=== PATIENT | male | born 1930 | race Caucasian/White ===

== ENCOUNTER → 2017-08-09 | Outpatient (REF) | LOC: LAB 07:17 | DX: I48.91 Unspecified atrial fibrillation (principal) ==

== ENCOUNTER 2019-02-27 14:15 | Emergency (ER) | payer MEDICARE ==
[~2019-02-27] VITALS: Wt 75.9 kg
[2019-02-27 15:16] LABS: EOS # 0.1 (0.04-0.40); HEMATOCRIT 34.8 % (42.0-52.0); HEMOGLOBIN 11.2 g/dL (13.5-18.0); LYMPH# 0.8 (1.50-4.00); MEAN CELL VOLUME 98 fl (78-100); MEAN CORPUSCULAR HEMOGLOBIN 32 pg (27-31); MEAN CORPUSCULAR HGB CONC 32 g/dL (33-37); MEAN PLATELET VOLUME 10.6 fl (7.4-10.4); MONO # 0.7 (0.20-0.80); NEU # 4.7 (1.40-6.50); PLATELET COUNT 134 K/mm3 (130-400); RED BLOOD COUNT 3.56 M/mm3 (4.20-5.60); RED CELL DISTRIBUTION WIDTH 13.8 % (11.5-14.5); WHITE BLOOD COUNT 6.3 K/mm3 (4.8-10.8)
[2019-02-27 15:19] LABS: PROTHROMBIN TIME 18.5 SECONDS (9.0-12.0)
[2019-02-27 15:21] LABS: ALBUMIN 3.8 g/dL (3.5-5.0); CALCIUM 8.6 mg/dL (8.4-10.2); POTASSIUM 4.5 mmol/L (3.6-5.0); TOTAL BILIRUBIN 0.9 mg/dL (0.2-1.3); TOTAL PROTEIN 6.8 g/dL (6.3-8.2)
[2019-02-27] MEDS ORDERED: TYLENOL 325MG325 MG PO (17:26)
[2019-02-27] MEDS ORDERED: ASPIRIN E.C. 8181 MG PO (17:26)
[2019-02-27] MEDS ORDERED: CARBIDOPA/LEVODOPA PO (17:27)
[2019-02-27] MEDS ORDERED: DIGOX0.125 MG PO (17:28)
[2019-02-27] MEDS ORDERED: WARFARIN SODIU2.5 MG PO (17:28)
[2019-02-27] MEDS ORDERED: FLEET ENEM1 BOT/133 RC (17:29)
[2019-02-27] MEDS ORDERED: FISH OIL 1000MG1 CAP PO (17:29)
[2019-02-27] MEDS ORDERED: DULCOLAX S10 MG/SUPP RC (17:29)
[2019-02-27] MEDS ORDERED: FUROSEMIDE40 MG PO (17:31)
[2019-02-27] MEDS ORDERED: LOPID600 MG PO (17:32)
[2019-02-27] MEDS ORDERED: GOOD NEIGH1200 MG/15 PO (17:33)
[2019-02-27] MEDS ORDERED: LISINOPRIL20 MG PO (17:33)
[2019-02-27] MEDS ORDERED: LIBRAX CAPSULE1 EACH PO (17:33)
[2019-02-27] MEDS ORDERED: PRAVASTATIN SOD10 MG PO (17:34)
[2019-02-27] MEDS ORDERED: NITROGLYCERIN0.4 M1 SL (17:34)
[2019-02-27] MEDS ORDERED: LANSOPRAZOLE30 MG PO (17:35)
[2019-02-27] MEDS ORDERED: SUCRALFATE1 G1 PO (17:35)
[2019-02-27] MEDS ORDERED: METOPROLOL SUCC50 M1 PO (17:36)
[2019-02-27 18:29] VITALS: BP 128/69
[2019-02-27 19:36] LABS: URINE APPEARANCE CLOUDY; URINE COLOR YELLOW; URINE PROTEIN(semi-quant) 1+ mg/dL (NEGATIVE)
[2019-02-27 19:37] LABS: URINE BILIRUBIN NEGATIVE (NEGATIVE); URINE BLOOD 250 ery/uL (NEGATIVE); URINE KETONE NEGATIVE (NEGATIVE); URINE LEUKOCYTE ESTERASE TRACE (NEGATIVE); URINE NITRATE NEGATIVE (NEGATIVE); URINE UROBILINOGEN NORMAL (NORMAL)
== END 2019-02-27 18:46 | disposition other institution (70) ==
LOC: ED 14:15
PROVIDERS: Physician Assistant
DX: R41.82 Altered mental status, unspecified (principal); I48.91 Unspecified atrial fibrillation; I50.9 Heart failure, unspecified; R53.1 Weakness; G20 Parkinson's disease; K21.9 Gastro-esophageal reflux disease without esophagitis; I25.2 Old myocardial infarction; E78.5 Hyperlipidemia, unspecified; Z88.0 Allergy status to penicillin; Z79.01 Long term (current) use of anticoagulants; Z79.82 Long term (current) use of aspirin
CPT/HCPCS: J7030

== ENCOUNTER 2019-02-27 18:03 | Inpatient (IN) | payer MEDICARE ==
[~2019-02-27] VITALS: Ht 177.8 cm; Wt 74.9 kg
[~2019-02-27 18:03] MED LIST: ASPIRIN E.C. 8181 MG PO; CARBIDOPA/LEVODOPA PO; DIGOX0.125 MG PO; DULCOLAX S10 MG/SUPP RC; FISH OIL 1000MG1 CAP PO; FLEET ENEM1 BOT/133 RC; FUROSEMIDE40 MG PO; GOOD NEIGH1200 MG/15 PO; LANSOPRAZOLE30 MG PO; LIBRAX CAPSULE1 EACH PO; LISINOPRIL20 MG PO; LOPID600 MG PO; METOPROLOL SUCC50 M1 PO; NITROGLYCERIN0.4 M1 SL; PRAVASTATIN SOD10 MG PO; SUCRALFATE1 G1 PO; TYLENOL 325MG325 MG PO; WARFARIN SODIU2.5 MG PO
--- NOTE | 2019-02-27 18:45 | NUR ---
DELIVER PATIENT TO ROOM 203 VIA STRETCHER. TRANSFER TO BED X2 STAFF. PATIENT ALERT AND TALKING WITH STAFF. INT INTACT TO RT HAND. INCONTINENT OF URINE; SCARLET CARE AND NEW ATTEND.
[2019-02-27 19:00] VITALS: BP 128/69
--- NOTE | 2019-02-27 19:30 | NUR ---
REPORT PROVIDED TO LISA FARAH.
[2019-02-27 23:00] VITALS: BP 152/67
[2019-02-28 02:15] VITALS: BP 128/72
[2019-02-28 06:17] VITALS: BP 128/77
[2019-02-28 07:11] LABS: EOS # 0.1 (0.04-0.40); EOS % 1.3 % (0.0-4.0); HEMATOCRIT 32.9 % (42.0-52.0); HEMOGLOBIN 10.7 g/dL (13.5-18.0); MEAN CELL VOLUME 97 fl (78-100); MEAN CORPUSCULAR HEMOGLOBIN 32 pg (27-31); MEAN CORPUSCULAR HGB CONC 33 g/dL (33-37); MEAN PLATELET VOLUME 10.6 fl (7.4-10.4); MONO # 0.4 (0.20-0.80); NEU # 3.3 (1.40-6.50); PLATELET COUNT 109 K/mm3 (130-400); RED CELL DISTRIBUTION WIDTH 13.3 % (11.5-14.5); WHITE BLOOD COUNT 4.5 K/mm3 (4.8-10.8)
[2019-02-28 07:36] LABS: PROTHROMBIN TIME 20.8 SECONDS (9.0-12.0)
[2019-02-28 07:47] LABS: LYMPH# 0.7 (1.50-4.00)
--- NOTE | 2019-02-28 08:00 | NUR ---
Notified provider of critical ProBNP 2525.4. Stopped fluids per MIRIAM Ley, RUBEN. Pt is A&O. Is upset that he has not eaten. Explain that ST will be in to monitor swallow during breakfast. Pt is 2 max assist to get out of bed. Stands with walker and "shuffles" approx 3' to recliner. INT intact to R hand. Reports pain in low back from "laying down all night" and has chronic neck pain that has been worsened last night "from them jerking me around getting me over here." Pt sits in recliner, alarm on, call light within reach.
[2019-02-28 08:31] LABS: CALCIUM 8.5 mg/dL (8.4-10.2); POTASSIUM 3.9 mmol/L (3.6-5.0)
[2019-02-28 11:42] VITALS: BP 125/62
[2019-02-28 15:00] VITALS: BP 101/57
[2019-02-28 18:00] VITALS: BP 144/77
--- NOTE | 2019-02-28 19:27 | NUR ---
Resting in bed. Echo completed and resulted on chart. A/O mostly, Did not know place ([facility] but [facility]) and did not know year. States "I don't know that. Rates pain to neck 03/29. K-pad in place. Assessment completed. [employer] in to reposition and change brief. Bed alarm on. Call light in reach.
--- NOTE | 2019-02-28 20:10 | NUR ---
INT to R hand leaking. D/C'd. New INT #20 started in LFA x1 attempt. Tolerated well. IV Rocephin administered SIVP. Accu-check 213. 4 Units of Novolog admin. SQ in KIM. Daughter in to visit and reports patient having increased neck pain. Tylenol 650 MG administered with HS medications. Taken whole in applesauce.
[2019-02-28 22:53] VITALS: BP 145/62
--- NOTE | 2019-03-01 01:06 | NUR ---
Awake with some confusion. Able to state name, , and correct Month. States I don't know how I got upstairs. Reoriented to place a situation. States "I know" when told he is at the hospital for a UTI. Incontinent of urine. Brief changed. Bed alarm on. Call light in reach.
--- NOTE | 2019-03-01 01:30 | NUR ---
Tylenol given for neck pain.
[2019-03-01 03:13] VITALS: BP 177/75
--- NOTE | 2019-03-01 03:13 | NUR ---
Remains awake, no sleep at all this shift. Drowsy, partially oriented, partially confused. Continues to have pain in his neck. Took pillow out and then states to staff "I need support for my head". Incontinent of urine, Stiff with turns and guarding of neck.
--- NOTE | 2019-03-01 03:57 | NUR ---
Resting now with eyes closed. No signs of distress. Bed alarm on. Call light in reach.
--- NOTE | 2019-03-01 06:13 | NUR ---
Awake in room. More alert and less confused then in the middle of the night. Helps with turns and less stiff. Incontinent of urine. Jessica-cares provided.
[2019-03-01 06:17] VITALS: BP 170/77
--- NOTE | 2019-03-01 07:32 | NUR ---
Report to Salma FARAH.
[2019-03-01] MEDS ORDERED: LISINOPRIL10 MG PO (10:24)
[2019-03-01] MEDS ORDERED: GLUCOPHAGE PO (10:25)
[2019-03-01] MEDS ORDERED: MACROBID 100 M100 MG PO (10:36)
[2019-03-01 10:42] VITALS: BP 170/77
--- NOTE | 2019-03-01 10:53 | NUR ---
REPORT RECEIVED THIS AM FROM SARA Fallon RN. PATIENT ALERT AND CONFUSED THIS MORNING WHEN DOING ASSESSMENT AND GIVING MEDS. ST DIXIE IN ROOM WITH PATIENT DURING THIS TIME WELL. PATIENT WAS RE-ORIENTED SOME WHEN TALKED ABOUT FAMILY AND PAST BUT UNSURE OF YEAR OR PRESIDENT. PATIENT STATES HE REMEMBERS THAT HE LIVES AT [facility]. PATIENT IS COOPERATIVE AND SWALLOWS PILLS EASILY WITH APPLESAUCE. PATIENT WAS GIVEN A SHOWER THIS MORNING AND THEN DISCHARGED HOME TO [facility].
--- NOTE | 2019-03-01 11:03 | NUR ---
REPORT CALLED TO YUMIKO AT [facility]. STAFF CAME OVER TO TAKE HIM HOME IN WHEELCHAIR, FAMILY AT BEDSIDE AND WENT TO OK WITH PATIENT AND STAFF. ALL BELONGINGS SENT WITH PATIENT AND FAMILY. NO QUESTIONS OR CONCERNS NOTED. PATIENT LEFT WITHOUT INCIDENT.
== END 2019-03-01 11:08 | DRG 638 ==
LOC: MED/SURG 18:03
PROVIDERS: ADMIT Physician Assistant
DX: E11.65 Type 2 diabetes mellitus with hyperglycemia (principal); G45.9 Transient cerebral ischemic attack, unspecified; N39.0 Urinary tract infection, site not specified; I48.91 Unspecified atrial fibrillation; G20 Parkinson's disease; K21.9 Gastro-esophageal reflux disease without esophagitis; I50.9 Heart failure, unspecified; R53.81 Other malaise; I11.0 Hypertensive heart disease with heart failure; Z79.01 Long term (current) use of anticoagulants
CPT/HCPCS: A4216; C9113; J0696; J1650; J1815; J7030

== ENCOUNTER → 2019-03-07 | Outpatient (CLI) | payer MEDICARE ==
[2019-03-01 10:42] VITALS: BP 170/77
[~2019-03-07] MED LIST changes: +GLUCOPHAGE PO; +LISINOPRIL10 MG PO; +MACROBID 100 M100 MG PO
[2019-03-07 10:57] LABS: URINE APPEARANCE HAZY; URINE BILIRUBIN NEGATIVE (NEGATIVE); URINE BLOOD TRACE (NEGATIVE); URINE COLOR YELLOW; URINE GLUCOSE NEGATIVE (NEGATIVE); URINE KETONE 1+ (NEGATIVE); URINE NITRATE NEGATIVE (NEGATIVE); URINE PROTEIN(semi-quant) TRACE mg/dL (NEGATIVE); URINE UROBILINOGEN NORMAL (NORMAL)
[2019-03-07 10:58] LABS: URINE LEUKOCYTE ESTERASE TRACE (NEGATIVE); URINE WBC 0-1 /hpf (0-3)
[2019-03-07 10:59] LABS: URINE MUCUS PRESENT (NOT PRESENT)
== END ==
LOC: LAB 09:41
PROVIDERS: Family Medicine
DX: N39.0 Urinary tract infection, site not specified (principal)

== ENCOUNTER → 2019-04-25 | Outpatient (CLI) | payer MEDICARE ==
[2019-04-25 06:57] LABS: PROTHROMBIN TIME 16.4 SECONDS (9.0-12.0)
== END ==
LOC: LAB 05:50
PROVIDERS: Internal Medicine Cardiovascular Disease
DX: I48.91 Unspecified atrial fibrillation (principal); Z79.01 Long term (current) use of anticoagulants

== ENCOUNTER → 2019-05-02 | Outpatient (CLI) | payer MEDICARE ==
[2019-05-02 06:28] LABS: PROTHROMBIN TIME 13.8 SECONDS (9.0-12.0)
== END ==
LOC: LAB 05:20
PROVIDERS: Internal Medicine Cardiovascular Disease
DX: I48.91 Unspecified atrial fibrillation (principal); Z79.01 Long term (current) use of anticoagulants

== ENCOUNTER → 2019-05-06 | Outpatient (CLI) | payer MEDICARE | LOC: LAB 06:15 | DX: E11.65 Type 2 diabetes mellitus with hyperglycemia (principal) ==

== ENCOUNTER → 2019-05-09 | Outpatient (CLI) | payer MEDICARE ==
[2019-05-09 07:28] LABS: PROTHROMBIN TIME 16.7 SECONDS (9.0-12.0)
== END ==
LOC: LAB 06:35
PROVIDERS: Internal Medicine Cardiovascular Disease
DX: I48.91 Unspecified atrial fibrillation (principal); Z79.01 Long term (current) use of anticoagulants

== ENCOUNTER → 2019-05-16 | Outpatient (CLI) | payer MEDICARE ==
[2019-05-16 06:55] LABS: PROTHROMBIN TIME 17.9 SECONDS (9.0-12.0)
== END ==
LOC: LAB 05:50
PROVIDERS: Internal Medicine Cardiovascular Disease
DX: I48.91 Unspecified atrial fibrillation (principal); Z79.01 Long term (current) use of anticoagulants

== ENCOUNTER → 2019-05-22 | Outpatient (CLI) | payer MEDICARE ==
[2019-05-22 07:43] LABS: PROTHROMBIN TIME 19.2 SECONDS (9.0-12.0)
== END ==
LOC: LAB 06:40
PROVIDERS: Internal Medicine Cardiovascular Disease
DX: I48.91 Unspecified atrial fibrillation (principal); Z79.01 Long term (current) use of anticoagulants

== ENCOUNTER → 2019-05-29 | Outpatient (CLI) | payer MEDICARE ==
[2019-05-29 07:49] LABS: PROTHROMBIN TIME 18.8 SECONDS (9.0-12.0)
== END ==
LOC: LAB 06:23
PROVIDERS: Family Medicine
DX: I48.91 Unspecified atrial fibrillation (principal)

== ENCOUNTER → 2019-06-03 | Outpatient (CLI) | payer MEDICARE | LOC: LAB 09:37 | PROVIDERS: Family Medicine | DX: I48.91 Unspecified atrial fibrillation (principal) ==

== ENCOUNTER → 2019-06-10 | Outpatient (CLI) | payer MEDICARE ==
[2019-06-10 07:54] LABS: PROTHROMBIN TIME 26.1 SECONDS (9.0-12.0)
== END ==
LOC: LAB 06:50
PROVIDERS: Family Medicine
DX: I48.91 Unspecified atrial fibrillation (principal); Z79.01 Long term (current) use of anticoagulants

== ENCOUNTER → 2019-07-17 | Outpatient (CLI) | payer MEDICARE ==
[2019-07-17 07:22] LABS: ALBUMIN 3.6 g/dL (3.4-4.8)
[2019-07-17 07:24] LABS: CALCIUM 8.7 mg/dL (8.3-10.5)
[2019-07-17 07:25] LABS: TOTAL PROTEIN 6.2 g/dL (6.2-8.1)
[2019-07-17 07:27] LABS: TOTAL BILIRUBIN 0.5 mg/dL (0.2-1.2)
[2019-07-17 07:34] LABS: HEMATOCRIT 38.7 % (42.0-52.0); HEMOGLOBIN 12.4 g/dL (13.5-18.0); RED BLOOD COUNT 4.22 M/mm3 (4.20-5.60); RED CELL DISTRIBUTION WIDTH 13.9 % (11.5-14.5); WHITE BLOOD COUNT 4.1 K/mm3 (4.8-10.8)
[2019-07-17 09:10] LABS: URINE APPEARANCE CLEAR; URINE BILIRUBIN NEGATIVE (NEGATIVE); URINE BLOOD NEGATIVE (NEGATIVE); URINE COLOR YELLOW; URINE GLUCOSE 50 mg/dL mg/dL (NEGATIVE); URINE KETONE NEGATIVE (NEGATIVE); URINE LEUKOCYTE ESTERASE NEGATIVE (NEGATIVE); URINE MUCUS PRESENT (NOT PRESENT); URINE NITRATE NEGATIVE (NEGATIVE); URINE PROTEIN(semi-quant) TRACE mg/dL (NEGATIVE); URINE UROBILINOGEN NORMAL (NORMAL); URINE WBC 0-1 /hpf (0-3)
== END ==
LOC: LAB 05:30
PROVIDERS: Family Medicine; Nurse Practitioner Primary Care
DX: E11.9 Type 2 diabetes mellitus without complications (principal)

== ENCOUNTER → 2019-07-23 | Outpatient (CLI) | payer MEDICARE ==
[2019-07-23 08:03] LABS: PROTHROMBIN TIME 25.3 SECONDS (9.0-12.0)
== END ==
LOC: LAB 06:05
PROVIDERS: Internal Medicine Cardiovascular Disease
DX: I48.91 Unspecified atrial fibrillation (principal); Z79.01 Long term (current) use of anticoagulants

== ENCOUNTER → 2019-08-20 | Outpatient (CLI) | payer MEDICARE ==
[2019-08-20 05:59] LABS: PROTHROMBIN TIME 27.5 SECONDS (9.0-12.0)
== END ==
LOC: LAB 05:40
PROVIDERS: Internal Medicine Cardiovascular Disease
DX: I48.91 Unspecified atrial fibrillation (principal)

== ENCOUNTER → 2019-09-17 | Outpatient (CLI) | payer MEDICARE | LOC: LAB 05:40 | PROVIDERS: Internal Medicine Cardiovascular Disease | DX: I48.91 Unspecified atrial fibrillation (principal) ==

== ENCOUNTER → 2019-10-15 | Outpatient (CLI) | payer MEDICARE ==
[2019-10-15 06:59] LABS: PROTHROMBIN TIME 24.1 SECONDS (9.0-12.0)
== END ==
LOC: LAB 05:15
PROVIDERS: Internal Medicine Cardiovascular Disease
DX: I48.91 Unspecified atrial fibrillation (principal); Z79.01 Long term (current) use of anticoagulants

== ENCOUNTER → 2019-11-12 | Outpatient (CLI) | payer MEDICARE ==
[2019-11-12 06:27] LABS: PROTHROMBIN TIME 18.2 SECONDS (9.0-12.0)
== END ==
LOC: LAB 05:20
PROVIDERS: Family Medicine
DX: I48.91 Unspecified atrial fibrillation (principal)

== ENCOUNTER → 2019-11-26 | Outpatient (CLI) | payer MEDICARE ==
[2019-11-26 06:19] LABS: PROTHROMBIN TIME 20.4 SECONDS (9.0-12.0)
== END ==
LOC: LAB 05:30
PROVIDERS: Internal Medicine Cardiovascular Disease
DX: I48.91 Unspecified atrial fibrillation (principal)

== ENCOUNTER → 2019-12-17 | Outpatient (CLI) | payer MEDICARE ==
[2019-12-17 10:26] LABS: PROTHROMBIN TIME 27.7 SECONDS (9.0-12.0)
== END ==
LOC: LAB 08:50
PROVIDERS: Family Medicine
DX: I48.91 Unspecified atrial fibrillation (principal)

== ENCOUNTER → 2020-01-07 | Outpatient (CLI) | payer MEDICARE ==
[2020-01-07 06:26] LABS: PROTHROMBIN TIME 23.4 SECONDS (9.0-12.0)
== END ==
LOC: LAB 06:00
PROVIDERS: Family Medicine
DX: I48.91 Unspecified atrial fibrillation (principal); Z79.01 Long term (current) use of anticoagulants

== ENCOUNTER → 2020-01-29 | Outpatient (CLI) | payer MEDICARE ==
[2020-01-29 06:11] LABS: PROTHROMBIN TIME 24.8 SECONDS (9.0-12.0)
== END ==
LOC: LAB 05:40
PROVIDERS: Internal Medicine Cardiovascular Disease
DX: I48.91 Unspecified atrial fibrillation (principal)

== ENCOUNTER → 2020-02-04 | Outpatient (CLI) | payer MEDICARE ==
[2020-02-04 06:56] LABS: HEMATOCRIT 37.8 % (42.0-52.0); HEMOGLOBIN 12.1 g/dL (13.5-18.0); MEAN PLATELET VOLUME 10.2 fl (7.4-10.4); RED BLOOD COUNT 3.97 M/mm3 (4.20-5.60); RED CELL DISTRIBUTION WIDTH 14.9 % (11.5-14.5); WHITE BLOOD COUNT 4.6 K/mm3 (4.8-10.8)
[2020-02-04 06:59] LABS: ALBUMIN 3.7 g/dL (3.4-4.8)
[2020-02-04 07:00] LABS: POTASSIUM 4.1 mmol/L (3.5-5.1)
[2020-02-04 07:02] LABS: TOTAL PROTEIN 6.8 g/dL (6.2-8.1)
[2020-02-04 07:04] LABS: TOTAL BILIRUBIN 0.5 mg/dL (0.2-1.2)
== END ==
LOC: LAB 06:39
PROVIDERS: Family Medicine
DX: E11.65 Type 2 diabetes mellitus with hyperglycemia (principal)

== ENCOUNTER → 2020-02-19 | Outpatient (CLI) | payer MEDICARE ==
[2020-02-19 08:24] LABS: PROTHROMBIN TIME 20.1 SECONDS (9.0-12.0)
== END ==
LOC: LAB 07:18
PROVIDERS: Internal Medicine Cardiovascular Disease
DX: I48.91 Unspecified atrial fibrillation (principal)

== ENCOUNTER → 2020-03-11 | Outpatient (CLI) | payer MEDICARE ==
[2020-03-11 11:47] LABS: PROTHROMBIN TIME 18.2 SECONDS (9.0-12.0)
== END ==
LOC: LAB 11:14
PROVIDERS: Family Medicine
DX: I48.20 Chronic atrial fibrillation, unspecified (principal); Z79.01 Long term (current) use of anticoagulants

== ENCOUNTER → 2020-03-18 | Outpatient (CLI) | payer MEDICARE ==
[2020-03-18 06:32] LABS: PROTHROMBIN TIME 23.8 SECONDS (9.0-12.0)
== END ==
LOC: LAB 06:00
PROVIDERS: Internal Medicine Cardiovascular Disease
DX: I48.20 Chronic atrial fibrillation, unspecified (principal); Z79.01 Long term (current) use of anticoagulants

== ENCOUNTER → 2020-04-01 | Outpatient (CLI) | payer MEDICARE ==
[2020-04-01 06:03] LABS: PROTHROMBIN TIME 18.1 SECONDS (9.0-12.0)
== END ==
LOC: LAB 05:54
PROVIDERS: Internal Medicine Cardiovascular Disease
DX: I48.91 Unspecified atrial fibrillation (principal); Z79.01 Long term (current) use of anticoagulants

== ENCOUNTER → 2020-04-08 | Outpatient (CLI) | payer MEDICARE ==
[2020-04-08 06:57] LABS: PROTHROMBIN TIME 18.6 SECONDS (9.0-12.0)
== END ==
LOC: LAB 06:40
PROVIDERS: Internal Medicine Cardiovascular Disease
DX: I48.91 Unspecified atrial fibrillation (principal); Z79.01 Long term (current) use of anticoagulants

== ENCOUNTER → 2020-04-15 | Outpatient (CLI) | payer MEDICARE | LOC: LAB 08:56 | PROVIDERS: Internal Medicine Cardiovascular Disease | DX: I48.91 Unspecified atrial fibrillation (principal); Z79.01 Long term (current) use of anticoagulants ==